=== PATIENT | female | born 1965 | race Caucasian/White ===

== ENCOUNTER 2016-08-24 05:34 | Emergency (ER) | payer OTHER ==
[2016-08-24 05:42] VITALS: TEMP 97.6
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
[2016-08-24] MEDS ORDERED: MAG HYDROX/AL HYDROX/SIMETH 30 ML, HYOSCYAMINE ELIXIR 10 ML, CIMETIDINE HCL 300 MG, LID... PO STA ×4 (06:45)
[2016-08-24 07:17] LABS: Basophils # (A) 0.1 k/uL (0-0.2); Basophils % (A) 2 %; CH 30.3; CHCM 34.2; Eosinophils # (A) 0.1 k/uL (0-0.7); Eosinophils % (A) 2 %; HCT 44.6 % (34.0-46.0); HDW 2.93; HGB 14.6 gm/dL (11.4-16.0); Luc % (Auto) 1; Lymphocytes % (A) 27 %; MCH 29.1 pg (25.0-35.0); MCHC 32.6 g/dL (31.0-37.0); MCV 89.3 fL (80.0-100.0); Mean Platelet Volume 7.8; Monocytes # (A) 0.4 k/uL (0-1.0); Monocytes % (A) 5 %; Neutrophils # (A) 4.7 k/uL (1.3-7.7); Neutrophils % (A) 64 %; RDW 14.2 % (11.5-15.5); WBC 7.4 k/uL (3.8-10.6); WBC (Perox) 7.56
--- NOTE | 2016-08-24 07:29 | XR ---
EXAMINATION TYPE: XR chest 2V DATE OF EXAM: 08/24/2016 7:18 AM COMPARISON: 10/02/2016 HISTORY: Chest pain FINDINGS: Perihilar subsegmental consolidation. No pneumothorax. No overt failure of fusion. IMPRESSION: 1. Right perihilar atelectasis or infiltrate.
[2016-08-24 07:32] LABS: Partial Thromboplastin Time 23.6 sec (22.0-30.0); Prothrombin Time 10.4 sec (9.0-12.0)
[2016-08-24 07:41] LABS: Creatine Kinase 103 U/L (30-135)
[2016-08-24 07:42] LABS: ALT 52 U/L (9-52); AST 29 U/L (14-36); Alkaline Phosphatase 75 U/L (38-126); Amylase 45 U/L (30-110); Anion Gap 8 mmol/L; Blood Urea Nitrogen 14 mg/dL (7-17); Calcium 9.4 mg/dL (8.4-10.2); Carbon Dioxide 29 mmol/L (22-30); Chloride 104 mmol/L (98-107); Glucose 88 mg/dL (74-99); Non-African American GFR(MDRD) >60 (>60 ml/min/1.73 sqM); Sodium 141 mmol/L (137-145); Total Bilirubin 0.5 mg/dL (0.2-1.3); Total Protein 6.7 g/dL (6.3-8.2)
[2016-08-24 07:53] LABS: Creatine Kinase MB 1.5 ng/mL (0.0-2.4); Troponin I <0.012 ng/mL (0.000-0.034)
[2016-08-24 07:55] LABS: Potassium 4.5 mmol/L (3.5-5.1)
[2016-08-24] MEDS ORDERED: methylPREDNISolone SOD SUCCI 125 MG/2 ML VIAL IV STA (10:05)
[2016-08-24] MEDS ORDERED: FAMOTIDINE 20 MG/2 ML VIAL IV STA (10:05)
[2016-08-24] MEDS ORDERED: RX INFO: IV CONTRAST WAS GIVEN 1 EACH MISC MISCELLANE PRN (10:05)
[2016-08-24] MEDS ORDERED: ACETAMINOPHEN IV (For NPO) 1,000 MG in SALINE 1 100ML.BAG IVPB STA (10:05)
[2016-08-24] MEDS ORDERED: diphenhydrAMINE 50 MG/ML 1 ML VIAL IVP STA (10:05)
--- NOTE | 2016-08-24 11:30 | CT ---
EXAMINATION TYPE: CT angio chest DATE OF EXAM: 08/24/2016 11:15 AM COMPARISON: 11/01/2015 HISTORY: 51-year-old female with chest pain CT DLP: 553 mGycm Automated exposure control for dose reduction was used. TECHNIQUE: Contiguous axial scanning of the chest is performed with with IV Contrast, patient injecte d with 100 ml mL of Omnipaque 350. Coronal and sagittal MIP reconstructions performed. FINDINGS: The heart is upper limits of normal in size without pericardial effusion. The aorta is normal caliber with variant direct takeoff of the left vertebral artery directly from th e aortic arch. Satisfactory opacification of the pulmonary arterial system without evidence for pulmonary embolus. Evaluation of the lungs are likely right midlung and mild dependent atelectasis. There is mild diffus e bronchial wall thickening also noted. No consolidation or pleural effusion. Visualized upper abdomen shows a small hiatal hernia. Soft tissue irregularity in this region, axial and image 113 may relate to mucosal redundancy. Bones: No osseous destructive process. IMPRESSION: 1. No evidence for pulmonary embolus. 2. A band of atelectasis in the right mid lung. Mild diffuse bronchial wall thickening could represen t bronchitis or asthma. 3. Small hiatal hernia. Some irregular soft tissue thickening at the GE junction may relate to mucosa l redundancy. Correlate for any symptoms that would warrant direct visualization to exclude a neoplas tic etiology.
[2016-08-24 12:33] VITALS: BP 106/57; PULSE 74; RESP 18
== END 2016-08-24 12:33 | disposition home or self-care (01) ==
LOC: EC 05:34
DX: J40 Bronchitis, not specified as acute or chronic (principal); R07.89 Other chest pain; M94.0 Chondrocostal junction syndrome [Tietze]; I48.91 Unspecified atrial fibrillation; F41.9 Anxiety disorder, unspecified; F17.200 Nicotine dependence, unspecified, uncomplicated; Z88.5 Allergy status to narcotic agent; Z88.2 Allergy status to sulfonamides; Z88.8 Allergy status to other drugs, medicaments and biological substances; Z88.6 Allergy status to analgesic agent; Z88.1 Allergy status to other antibiotic agents; Z98.61 Coronary angioplasty status; Z79.82 Long term (current) use of aspirin; Z91.041 Radiographic dye allergy status; Z79.899 Other long term (current) drug therapy
CPT/HCPCS: 99285; 96365; 96375 ×3; 36415; 93005; 85379; 80053; 82150; 82550; 82553; 83690; 83735; 84484; 85025; 85610; 85730; 71020; 71275; J1200; J2930; Q9967; J0131

== ENCOUNTER 2016-09-13 03:54 | Observation (INO) | payer OTHER ==
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
[2016-09-13] MEDS: NITROGLYCERIN SL TABS 0.4 MG TAB SUBLINGUAL STA (04:59)
[2016-09-13] MEDS: ASPIRIN 81 MG CHEW PO STA ×2 (05:01→09:42)
[2016-09-13] MEDS ORDERED: MORPHINE SULFATE 4 MG/ML SYRINGE IV STA (05:11)
[2016-09-13 05:47] LABS: Basophils % (A) 0 %; CH 30.5; CHCM 35.1; Eosinophils # (A) 0.2 k/uL (0-0.7); Eosinophils % (A) 2 %; HCT 38.4 % (34.0-46.0); HDW 2.99; HGB 13.1 gm/dL (11.4-16.0); Luc % (Auto) 1; Lymphocytes # (A) 1.6 k/uL (1.0-4.8); Lymphocytes % (A) 19 %; MCH 29.8 pg (25.0-35.0); MCHC 34.1 g/dL (31.0-37.0); MCV 87.2 fL (80.0-100.0); Mean Platelet Volume 7.3; Monocytes # (A) 0.4 k/uL (0-1.0); Monocytes % (A) 5 %; Neutrophils # (A) 6.4 k/uL (1.3-7.7); Neutrophils % (A) 73 %; RBC 4.41 m/uL (3.80-5.40); RDW 13.3 % (11.5-15.5); WBC 8.8 k/uL (3.8-10.6)
[2016-09-13 06:04] LABS: ALT 44 U/L (9-52); AST 35 U/L (14-36); Alkaline Phosphatase 91 U/L (38-126); Amylase <30 U/L (30-110); Anion Gap 8 mmol/L; Blood Urea Nitrogen 13 mg/dL (7-17); Calcium 8.8 mg/dL (8.4-10.2); Carbon Dioxide 28 mmol/L (22-30); Chloride 105 mmol/L (98-107); Glucose 77 mg/dL (74-99); Magnesium 1.8 mg/dL (1.6-2.3); Non-African American GFR(MDRD) >60 (>60 ml/min/1.73 sqM); Potassium 3.7 mmol/L (3.5-5.1); Sodium 141 mmol/L (137-145); Total Bilirubin 0.3 mg/dL (0.2-1.3); Total Protein 5.9 g/dL (6.3-8.2)
[2016-09-13 06:12] LABS: Creatine Kinase 44 U/L (30-135)
[2016-09-13 06:26] LABS: Creatine Kinase MB 0.4 ng/mL (0.0-2.4); Troponin I <0.012 ng/mL (0.000-0.034)
[2016-09-13] MEDS ORDERED: HYDROcodone/APAP 7.5-325MG 1 EACH TAB PO ONE (06:34)
[2016-09-13] MEDS ORDERED: NITROGLYCERIN SL TABS 0.4 MG TAB SUBLINGUAL PRN (07:04)
[2016-09-13] MEDS ORDERED: IPRATROPIUM-ALBUTEROL 3 ML NEB INHALATION PRN (07:06)
--- NOTE | 2016-09-13 07:09 | XR ---
EXAMINATION TYPE: XR chest 1V portable DATE OF EXAM: 09/13/2016 7:00 AM COMPARISON: 08/24/2016 HISTORY: Sharp mid chest pain started early a.m. TECHNIQUE: Single frontal view of the chest is obtained. FINDINGS: Mild atelectasis is noted in the right midlung field. There is mild pulmonary vascular congestion. No focal pneumonia pneumothorax or pleural effusion is noted. Chronic interstitial lung changes are sug gested. Heart is borderline enlarged.. The osseous structures are intact. IMPRESSION: 1. Mild atelectasis in the right midlung field. 2. No focal pneumonia.
[2016-09-13] MEDS: SODIUM CHLORIDE 0.9% 1,000 ML IV SCH ×2 (09:04→19:57)
[2016-09-13] MEDS: ALPRAZolam 0.5 MG TAB PO SCH ×3 (09:13→23:04)
[2016-09-13] MEDS: METOPROLOL TARTRATE 25 MG TAB PO SCH ×2 (09:27→20:01)
[2016-09-13 09:57] VITALS: BMI 29.5
[2016-09-13] MEDS ORDERED: oxyCODONE-APAP 10-325MG 1 EACH TAB PO PRN (11:01)
[2016-09-13 11:25] LABS: Creatine Kinase 36 U/L (30-135)
[2016-09-13 11:35] LABS: Creatine Kinase MB 0.4 ng/mL (0.0-2.4); Troponin I <0.012 ng/mL (0.000-0.034)
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
[2016-09-13 17:46] LABS: Creatine Kinase 34 U/L (30-135)
[2016-09-13 18:00] LABS: Creatine Kinase MB 0.3 ng/mL (0.0-2.4); Troponin I <0.012 ng/mL (0.000-0.034)
[2016-09-13] MEDS: MORPHINE SULFATE 2 MG/ML SYRINGE IVP PRN (20:01)
[2016-09-14] MEDS: MORPHINE SULFATE 2 MG/ML SYRINGE IVP PRN ×3 (00:02→08:21)
[2016-09-14] MEDS: SODIUM CHLORIDE 0.9% 1,000 ML IV SCH (04:18)
[2016-09-14 05:15] VITALS: TEMP 97.6
[2016-09-14 05:31] LABS: Cholesterol 180 mg/dL (<200); HDL Cholesterol 42 mg/dL (40-60); Triglycerides 399 mg/dL (<150)
[2016-09-14 08:02] VITALS: BP 111/56; PULSE 51; RESP 14
[2016-09-14] MEDS: ALPRAZolam 0.5 MG TAB PO SCH (08:21)
[2016-09-14] MEDS ORDERED: ASPIRIN 325 MG TAB PO SCH (09:00)
--- NOTE | 2016-09-14 11:31 | P.DS ---
Providers Date of admission: 09/13/16 07:30 Expected date of discharge: 09/14/16 Attending physician: Lana Almanza Primary care physician: Lana Almanza [facility] Course: 1. Chest pain: With typical and atypical features. 12 leads EKG showed no acute ischemic changes in the emergency room. Serial troponin negative 2 sets. Patient was seen and evaluated by cardiology and was cleared for discharge as her pain was mostly in the chest wall with costochondral tenderness on the right side of the chest. 2. Paroxysmal atrial fibrillation: Heart rate well controlled. Continue telemetry monitoring. 3. Chronic low back pain 4. Major depressive disorder Patient Condition at Discharge: Fair Plan - Discharge Summary Discharge Medication List Aspirin [Adult Low Dose Aspirin EC] 81 mg PO DAILY 12/09/15 [History] ALPRAZolam [Xanax] 1 mg PO Q8HR 08/24/16 [History] Ipratropium/Albuterol Sulfate [Combivent Respimat Inhaler] 2 puff INHALATION QID PRN #1 inhaler 08/24/16 [Rx] oxyCODONE HCL/ACETAMINOPHEN [Percocet 10-325 mg] 1 tab PO Q8H PRN 08/24/16 [ History] Vilazodone Hydrochloride [Viibryd] 40 mg PO DAILY 09/13/16 [History] Metoprolol Tartrate [Lopressor] 12.5 mg PO BID #0 09/14/16 [Rx] Follow up Appointment(s)/Referral(s): Lana Almanza MD [Primary Care Provider] - 1-2 days Discharge Disposition: HOME SELF-CARE
[2016-09-14] MEDS: METOPROLOL TARTRATE 25 MG TAB PO SCH (12:27)
== END 2016-09-14 12:26 | disposition home or self-care (01) ==
LOC: EC 03:54 → 3OBS 07:30
PROVIDERS: ADMIT Internal Medicine; ATTEND Internal Medicine
DX: R07.89 Other chest pain (principal); I48.0 Paroxysmal atrial fibrillation; G89.29 Other chronic pain; M54.5 Low back pain; F32.9 Major depressive disorder, single episode, unspecified; F41.9 Anxiety disorder, unspecified; F40.240 Claustrophobia; Z86.14 Personal history of Methicillin resistant Staphylococcus aureus infection; Z87.891 Personal history of nicotine dependence; Z79.82 Long term (current) use of aspirin; Z79.899 Other long term (current) drug therapy; Z88.6 Allergy status to analgesic agent; Z88.8 Allergy status to other drugs, medicaments and biological substances; Z98.1 Arthrodesis status; Z82.49 Family history of ischemic heart disease and other diseases of the circulatory system; Z80.8 Family history of malignant neoplasm of other organs or systems; Z82.5 Family history of asthma and other chronic lower respiratory diseases
CPT/HCPCS: 36415; 93005; 85379; 80061; 80053; 84443; 82150; 82550; 82553; 83690; 83735; 84484; 85025; 71010; 99285; 96374; G0378 ×2; J2270 ×3; 96376

== ENCOUNTER 2017-01-25 18:54 | Emergency (ER) | payer OTHER ==
[2017-01-25] MEDS ORDERED: SODIUM CHLORIDE 0.9% 500 ML IV STA (19:24)
[2017-01-25] MEDS ORDERED: HYDROmorphone 1 MG/ML 1 ML SYRINGE IVP STA ×2 (19:25→20:26)
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
[2017-01-25 19:49] LABS: Basophils % (A) 0 %; CH 29.3; CHCM 34.7; Eosinophils # (A) 0.2 k/uL (0-0.7); Eosinophils % (A) 4 %; HCT 38.9 % (34.0-46.0); HDW 2.96; HGB 13.2 gm/dL (11.4-16.0); Luc # (Auto) 0.11; Luc % (Auto) 2; Lymphocytes # (A) 1.6 k/uL (1.0-4.8); Lymphocytes % (A) 26 %; MCH 28.6 pg (25.0-35.0); MCHC 33.8 g/dL (31.0-37.0); MCV 84.7 fL (80.0-100.0); Mean Platelet Volume 7.8; Monocytes # (A) 0.3 k/uL (0-1.0); Monocytes % (A) 5 %; Neutrophils # (A) 3.8 k/uL (1.3-7.7); Neutrophils % (A) 63 %; RDW 13.6 % (11.5-15.5); WBC 6.1 k/uL (3.8-10.6); WBC (Perox) 6.53
[2017-01-25 20:00] LABS: Partial Thromboplastin Time 25.1 sec (22.0-30.0); Prothrombin Time 10.4 sec (9.0-12.0)
[2017-01-25 20:05] LABS: ALT 27 U/L (9-52); AST 21 U/L (14-36); Alkaline Phosphatase 97 U/L (38-126); Anion Gap 6 mmol/L; Blood Urea Nitrogen 12 mg/dL (7-17); Calcium 9.5 mg/dL (8.4-10.2); Carbon Dioxide 29 mmol/L (22-30); Chloride 107 mmol/L (98-107); Glucose 90 mg/dL (74-99); Non-African American GFR(MDRD) >60 (>60 ml/min/1.73 sqM); Potassium 4.4 mmol/L (3.5-5.1); Sodium 142 mmol/L (137-145); Total Bilirubin 0.2 mg/dL (0.2-1.3); Total Protein 6.3 g/dL (6.3-8.2)
[2017-01-25 20:14] LABS: Creatine Kinase 65 U/L (30-135)
[2017-01-25 20:27] LABS: Creatine Kinase MB 0.7 ng/mL (0.0-2.4); Troponin I <0.012 ng/mL (0.000-0.034)
--- NOTE | 2017-01-25 20:34 | CT ---
EXAMINATION TYPE: CT brain wo con DATE OF EXAM: 01/25/2017 COMPARISON: 08/24/2010 HISTORY: fall CT DLP: 1036 mGycm Automated exposure control for dose reduction was used. FINDINGS: Ventricles and sulci appear normal. There is no mass effect nor midline shift. There is no sign of in tracranial hemorrhage. The calvarium appears intact. IMPRESSION: Negative unenhanced head CT scan. No change.
--- NOTE | 2017-01-25 20:40 | XR ---
EXAMINATION TYPE: XR chest 2V DATE OF EXAM: 01/25/2017 COMPARISON: 09/13/2016 HISTORY: Fell down the stairs TECHNIQUE: Frontal and lateral views of the chest are obtained. FINDINGS: Heart and mediastinum are normal. Lungs are clear. There is no sign of pleural effusion or pneumothorax. The bony thorax is intact. IMPRESSION: Normal chest. There is clearing of the focal atelectasis in the right midlung compared t o last exam.
--- NOTE | 2017-01-25 20:41 | XR ---
EXAMINATION TYPE: XR pelvis AP view DATE OF EXAM: 01/25/2017 COMPARISON: NONE HISTORY: Fell down the stairs and pain TECHNIQUE: Single view FINDINGS: Pelvic ring is intact. Proximal femurs and hip joints are intact. I see no fracture. There is extensive lower lumbar spine surgery noted. Sacroiliac joints are intact. IMPRESSION: No acute abnormality of the pelvis.
--- NOTE | 2017-01-25 20:43 | XR ---
EXAMINATION TYPE: XR lumbar spine 2 or 3V DATE OF EXAM: 01/25/2017 COMPARISON: NONE HISTORY: Pain TECHNIQUE: 3 views FINDINGS: There is laminectomy at L4 and L5 with posterior fusion surgery. There are disc prosthesis at L3-4 L4-5 and L5-S1. I see no compression fracture. Sacroiliac joints are intact. IMPRESSION: Previous surgery. No fracture seen.
[2017-01-25 21:27] VITALS: RESP 16
[2017-01-25 21:43] VITALS: BP 103/57; PULSE 54; TEMP 98
== END 2017-01-25 21:49 | disposition home or self-care (01) ==
LOC: EC 18:54
DX: S33.5XXA Sprain of ligaments of lumbar spine, initial encounter (principal); R55 Syncope and collapse; R00.1 Bradycardia, unspecified; Z98.1 Arthrodesis status; Z87.891 Personal history of nicotine dependence; Z88.1 Allergy status to other antibiotic agents; Z88.5 Allergy status to narcotic agent; Z88.2 Allergy status to sulfonamides; Z91.041 Radiographic dye allergy status; Z88.8 Allergy status to other drugs, medicaments and biological substances; Z88.6 Allergy status to analgesic agent; Z79.82 Long term (current) use of aspirin; Z79.899 Other long term (current) drug therapy; W10.9XXA Fall (on) (from) unspecified stairs and steps, initial encounter; Y93.01 Activity, walking, marching and hiking; Y92.59 Other trade areas as the place of occurrence of the external cause
CPT/HCPCS: 99285; 96374; 96376; 36415; 93005; 80053; 82550; 82553; 84484; 85025; 85610; 85730; 71020; 72100; 72170; 70450; J1170

== ENCOUNTER 2017-03-13 16:24 | Emergency (ER) | payer OTHER ==
[2017-03-13 16:59] LABS: Basophils # (A) 0.1 k/uL (0-0.2); Basophils % (A) 1 %; CH 29.6; CHCM 34.4; Eosinophils # (A) 0.2 k/uL (0-0.7); Eosinophils % (A) 2 %; HCT 40.6 % (34.0-46.0); HDW 2.94; Luc # (Auto) 0.14; Luc % (Auto) 2; Lymphocytes # (A) 3.1 k/uL (1.0-4.8); Lymphocytes % (A) 39 %; MCH 29.8 pg (25.0-35.0); MCHC 34.4 g/dL (31.0-37.0); MCV 86.6 fL (80.0-100.0); Mean Platelet Volume 7.5; Monocytes # (A) 0.5 k/uL (0-1.0); Monocytes % (A) 6 %; Neutrophils # (A) 3.8 k/uL (1.3-7.7); Neutrophils % (A) 49 %; RBC 4.68 m/uL (3.80-5.40); RDW 14.4 % (11.5-15.5); WBC 7.8 k/uL (3.8-10.6); WBC (Perox) 7.58
[2017-03-13] MEDS ORDERED: ASPIRIN 325 MG TAB PO STA (17:05)
[2017-03-13] MEDS ORDERED: MORPHINE SULFATE 4 MG/ML SYRINGE IVP STA (17:05)
[2017-03-13 17:13] LABS: Creatine Kinase 40 U/L (30-135); INR 1.1 (<1.2); Partial Thromboplastin Time 23.9 sec (22.0-30.0); Prothrombin Time 10.8 sec (9.0-12.0)
[2017-03-13 17:15] LABS: ALT 30 U/L (9-52); AST 13 U/L (14-36); Alcohol <10 mg/dL; Alkaline Phosphatase 83 U/L (38-126); Anion Gap 10 mmol/L; Blood Urea Nitrogen 13 mg/dL (7-17); Calcium 9.1 mg/dL (8.4-10.2); Carbon Dioxide 25 mmol/L (22-30); Chloride 108 mmol/L (98-107); Glucose 68 mg/dL (74-99); Non-African American GFR(MDRD) >60 (>60 ml/min/1.73 sqM); Potassium 3.8 mmol/L (3.5-5.1); Sodium 143 mmol/L (137-145); Total Bilirubin 0.2 mg/dL (0.2-1.3); Total Protein 6.3 g/dL (6.3-8.2)
--- NOTE | 2017-03-13 17:19 | XR ---
EXAMINATION TYPE: XR chest 2V DATE OF EXAM: 03/13/2017 COMPARISON: 01/25/2017 HISTORY: Chest pain TECHNIQUE: Frontal and lateral views of the chest are obtained. FINDINGS: Heart is normal. Lungs are clear of consolidation. There are no hilar masses. There is no sign of pleural effusion. There are small linear density at the left lung base. There are chest leads . IMPRESSION: There is new minimal focal atelectasis at the left lung base compared to old exam.
[2017-03-13 17:26] LABS: Creatine Kinase MB 0.7 ng/mL (0.0-2.4); Troponin I <0.012 ng/mL (0.000-0.034)
[2017-03-13 18:06] VITALS: BP 104/61; PULSE 58; RESP 20
--- NOTE | 2017-03-13 18:12 | ED ---
General Adult HPI - General Chief complaint: Chest Pain Stated complaint: Chest Pain Time Seen by Provider: 03/13/17 16:35 Source: patient, RN notes reviewed, old records reviewed Mode of arrival: wheelchair Limitations: no limitations - History of Present Illness Initial comments: 52-year-old female presents with chief complaint of chest pain. Describes the pain is heavy and radiates to her left arm. She does have a past medical history of atrial fibrillation and chronic back pain for which she takes OxyContin cotton, and Flexeril. Patient denies nausea vomiting or diarrhea. Denies diaphoresis. Patient has had chest pain workup in the past including heart catheterization in 2014 which she believes was normal. Patient denies chest pain with exertion. Denies alcohol consumption today. Denies cough, denies fever or chills, denies abdominal pain. - Related Data Home Medications Medication Instructions Recorded Confirmed ALPRAZolam [Xanax] 1 mg PO TID PRN 08/24/16 03/13/17 oxyCODONE HCL/ACETAMINOPHEN 1 tab PO Q8H PRN 08/24/16 03/13/17 [Percocet 10-325 mg] Metoprolol Tartrate [Lopressor] 25 mg PO DAILY 03/13/17 03/13/17 Allergies Allergy/AdvReac Type Severity Reaction Status Date / Time carisoprodol [From Soma] Allergy Unknown Itching Verified 03/13/17 18:01 cephalexin monohydrate Allergy Unknown Anaphylaxis Verified 03/13/17 18:01 [From Keflex] codeine Allergy Unknown Itching Verified 03/13/17 18:01 ketorolac tromethamine Allergy Unknown Rash/Hives Verified 03/13/17 18:01 [From Toradol] prochlorperazine Allergy Unknown Anaphylaxis Verified 03/13/17 18:01 [From Compazine] sulfamethoxazole Allergy Unknown Anaphylaxis Verified 03/13/17 18:01 [From Bactrim] trimethoprim [From Bactrim] Allergy Unknown Anaphylaxis Verified 03/13/17 18:01 Iodinated Contrast- Oral and Allergy Anaphylaxis Verified 03/13/17 18:01 IV Dye [Iodinated Contrast Media - Oral and] Review of Systems ROS Statement: Those systems with pertinent positive or pertinent negative responses have been documented in the HPI. ROS Other: All systems not noted in ROS Statement are negative. Cardiovascular: Reports: chest pain. Denies: palpitations Endocrine: Denies: fatigue Gastrointestinal: Denies: abdominal pain, nausea, vomiting Past Medical History Past Medical History: Atrial Fibrillation Additional Past Medical History / Comment(s): CELLULITIS LT ELBOW. OTHER PAST MEDCIAL HX INCLUDES: kidney stone, UTI, PAST FX RT ANKLE-casted only, BP RUNS ON LOW SIDE, DIVERTICULITIS, PANCREATITIS. History of Any Multi-Drug Resistant Organisms: MRSA Date of last positivie culture/infection: 2003 MDRO Source:: stomach/skin Past Surgical History: Back Surgery, Section, Cholecystectomy, Hysterectomy Additional Past Surgical History / Comment(s): lithotripsy X5, X3 BACK SX FUSION RODS AND SCREWS Past Anesthesia/Blood Transfusion Reactions: Motion Sickness Additional Past Anesthesia/Blood Transfusion Reaction / Comment(s): CLAUSTERPHOBIA Past Psychological History: Anxiety, Depression Smoking Status: Former smoker Past Alcohol Use History: None Reported Past Drug Use History: None Reported - Past Family History Father History Unknown: Yes Additional Family Medical History / Comment(s): HX UNK Mother Family Medical History: Cancer, COPD, Hypertension, Pneumonia, Thyroid Disorder Additional Family Medical History / Comment(s): MOM IS 67 YEARS OLD, THYROID CA General Exam Limitations: no limitations General appearance: appears intoxicated Head exam: Present: atraumatic, normocephalic Eye exam: Present: normal appearance, PERRL ENT exam: Present: normal exam, normal oropharynx, mucous membranes moist Neck exam: Present: normal inspection, full ROM. Absent: tenderness, meningismus Respiratory exam: Present: normal lung sounds bilaterally. Absent: respiratory distress, wheezes Cardiovascular Exam: Present: normal rhythm, bradycardia GI/Abdominal exam: Present: soft. Absent: distended, tenderness Extremities exam: Present: normal inspection, normal capillary refill. Absent: pedal edema Neurological exam: Present: oriented X3, CN II-XII intact, other (Patient appears intoxicated). Absent: motor sensory deficit Psychiatric exam: Present: depressed, flat affect Skin exam: Present: warm, dry Course Vital Signs 03/13/17 03/13/17 16:31 17:27 Temperature 98.1 F Pulse Rate 56 L 49 L Respiratory 18 18 Rate Blood Pressure 119/71 112/75 O2 Sat by Pulse 97 99 Oximetry - Reevaluation(s) Reevaluation #1: 03/13/17 18:06 Patient is given aspirin and morphine for her pain. Reevaluation she is feeling better. Patient did not receive nitroglycerin. EKG Findings - EKG Comments: EKG Findings:: EKG shows sinus bradycardia with a ventricular rate of 50 QRS 78 , OH 154, QTC is 393, there is no ST segment elevation or depression, no T-wave abnormality Medical Decision Making - Medical Decision Making 52-year-old female presenting with chief complaint of heavy sided chest pain. Patient denies nausea or vomiting, denies diaphoresis. Patient has been evaluated in the emergency department for chest pain previously. Including a heart catheterization in September 2014 which showed no significant coronary artery disease. She does have history of atrial fibrillation and is on metoprolol. Patient's heart rate remains bradycardic lost in the emergency department, however blood pressure is stable. On initial questioning patient does appear somewhat intoxicated, slurring her words. She is able to give a history. She does take Percocet as well as benzodiazepines for chronic back pain. On initial questioning patient denied taking any of these medications stated her only medication was metoprolol. EKG is nonischemic, chest x-ray shows no acute findings, laboratory studies including cardiac enzymes is unremarkable. Urine drug screen does show opiates and benzodiazepines, again which the patient initially denied taking. Patient is encouraged to follow up with her primary care physician, and her information technology data analyst. - Lab Data Result diagrams: 03/13/17 16:45 03/13/17 16:45 Lab Results 03/13/17 03/13/17 03/13/17 Range/Units 16:45 16:45 16:45 WBC 7.8 (3.8-10.6) k/uL RBC 4.68 (3.80-5.40) m/uL Hgb 14.0 (11.4-16.0) gm/dL Hct 40.6 (34.0-46.0) % MCV 86.6 (80.0-100.0) fL MCH 29.8 (25.0-35.0) pg MCHC 34.4 (31.0-37.0) g/dL RDW 14.4 (11.5-15.5) % Plt Count 195 (150-450) k/uL Neutrophils % 49 % Lymphocytes % 39 % Monocytes % 6 % Eosinophils % 2 % Basophils % 1 % Neutrophils # 3.8 (1.3-7.7) k/uL Lymphocytes # 3.1 (1.0-4.8) k/uL Monocytes # 0.5 (0-1.0) k/uL Eosinophils # 0.2 (0-0.7) k/uL Basophils # 0.1 (0-0.2) k/uL PT (9.0-12.0) sec INR (<1.2) APTT (22.0-30.0) sec Sodium 143 (137-145) mmol/L Potassium 3.8 (3.5-5.1) mmol/L Chloride 108 H (98-107) mmol/L Carbon Dioxide 25 (22-30) mmol/L Anion Gap 10 mmol/L BUN 13 (7-17) mg/dL Creatinine 0.70 (0.52-1.04) mg/dL Est GFR (MDRD) Af Amer >60 (>60 ml/min/1.73 sqM) Est GFR (MDRD) Non-Af >60 (>60 ml/min/1.73 sqM) Glucose 68 L (74-99) mg/dL Calcium 9.1 (8.4-10.2) mg/dL Magnesium 2.0 (1.6-2.3) mg/dL Total Bilirubin 0.2 (0.2-1.3) mg/dL AST 13 L (14-36) U/L ALT 30 (9-52) U/L Alkaline Phosphatase 83 (38-126) U/L Total Creatine Kinase 40 (30-135) U/L CK-MB (CK-2) 0.7 (0.0-2.4) ng/mL CK-MB (CK-2) Rel Index 1.8 Troponin I <0.012 (0.000-0.034) ng/mL NT-Pro-B Natriuret Pep pg/mL Total Protein 6.3 (6.3-8.2) g/dL Albumin 4.0 (3.5-5.0) g/dL Urine Opiates Screen (NotDetected) Ur Oxycodone Screen (NotDetected) Urine Methadone Screen (NotDetected) Ur Propoxyphene Screen (NotDetected) Ur Barbiturates Screen (NotDetected) U Tricyclic Antidepress (NotDetected) Ur Phencyclidine Scrn (NotDetected) Ur Amphetamines Screen (NotDetected) U Methamphetamines Scrn (NotDetected) U Benzodiazepines Scrn (NotDetected) Urine Cocaine Screen (NotDetected) U Marijuana (THC) Screen (NotDetected) Serum Alcohol <10 mg/dL 03/13/17 03/13/17 03/13/17 Range/Units 16:45 16:45 17:10 WBC (3.8-10.6) k/uL RBC (3.80-5.40) m/uL Hgb (11.4-16.0) gm/dL Hct (34.0-46.0) % MCV (80.0-100.0) fL MCH (25.0-35.0) pg MCHC (31.0-37.0) g/dL RDW (11.5-15.5) % Plt Count (150-450) k/uL Neutrophils % % Lymphocytes % % Monocytes % % Eosinophils % % Basophils % % Neutrophils # (1.3-7.7) k/uL Lymphocytes # (1.0-4.8) k/uL Monocytes # (0-1.0) k/uL Eosinophils # (0-0.7) k/uL Basophils # (0-0.2) k/uL PT 10.8 (9.0-12.0) sec INR 1.1 (<1.2) APTT 23.9 (22.0-30.0) sec Sodium (137-145) mmol/L Potassium (3.5-5.1) mmol/L Chloride (98-107) mmol/L Carbon Dioxide (22-30) mmol/L Anion Gap mmol/L BUN (7-17) mg/dL Creatinine (0.52-1.04) mg/dL Est GFR (MDRD) Af Amer (>60 ml/min/1.73 sqM) Est GFR (MDRD) Non-Af (>60 ml/min/1.73 sqM) Glucose (74-99) mg/dL Calcium (8.4-10.2) mg/dL Magnesium (1.6-2.3) mg/dL Total Bilirubin (0.2-1.3) mg/dL AST (14-36) U/L ALT (9-52) U/L Alkaline Phosphatase (38-126) U/L Total Creatine Kinase (30-135) U/L CK-MB (CK-2) (0.0-2.4) ng/mL CK-MB (CK-2) Rel Index Troponin I (0.000-0.034) ng/mL NT-Pro-B Natriuret Pep 408 pg/mL Total Protein (6.3-8.2) g/dL Albumin (3.5-5.0) g/dL Urine Opiates Screen Not Detected (NotDetected) Ur Oxycodone Screen Detected H (NotDetected) Urine Methadone Screen Not Detected (NotDetected) Ur Propoxyphene Screen Not Detected (NotDetected) Ur Barbiturates Screen Not Detected (NotDetected) U Tricyclic Antidepress Not Detected (NotDetected) Ur Phencyclidine Scrn Not Detected (NotDetected) Ur Amphetamines Screen Not Detected (NotDetected) U Methamphetamines Scrn Not Detected (NotDetected) U Benzodiazepines Scrn Detected H (NotDetected) Urine Cocaine Screen Not Detected (NotDetected) U Marijuana (THC) Screen Not Detected (NotDetected) Serum Alcohol mg/dL Disposition Clinical Impression: Chest pain Disposition: HOME SELF-CARE Condition: Good Instructions: Chest Pain (ED) Additional Instructions: Patient is encouraged to return to the emergency department with worsening or changing symptoms. Referrals: Castillo Younger DO [Primary Care Provider] - 1-2 days Time of Disposition: 18:11
[2017-03-13 18:20] VITALS: TEMP 97.1
== END 2017-03-13 18:20 | disposition home or self-care (01) ==
LOC: EC 16:24
DX: R07.9 Chest pain, unspecified (principal); R00.1 Bradycardia, unspecified; I48.91 Unspecified atrial fibrillation; Z86.14 Personal history of Methicillin resistant Staphylococcus aureus infection; Z87.891 Personal history of nicotine dependence; Z79.899 Other long term (current) drug therapy; Z88.1 Allergy status to other antibiotic agents; Z88.2 Allergy status to sulfonamides; Z88.5 Allergy status to narcotic agent; Z88.6 Allergy status to analgesic agent; Z88.8 Allergy status to other drugs, medicaments and biological substances; Z91.041 Radiographic dye allergy status
CPT/HCPCS: 36415; 93005; 83880; 80053; 82550; 82553; 83735; 84484; 85025; 85610; 85730; 80306; 80320; 71020; 99285; 96374; J2270

== ENCOUNTER 2017-05-04 11:19 | Emergency (ER) | payer OTHER ==
[2017-05-04] MEDS ORDERED: SODIUM CHLORIDE 0.9% 500 ML BAG ONE (11:31)
--- NOTE | 2017-05-04 11:53 | ED ---
General Adult HPI - General Stated complaint: right ear pain/vomiting Time Seen by Provider: 05/04/17 11:35 Source: RN notes reviewed - History of Present Illness Initial comments: This is a 52-year-old female with past medical history significant for a right ear implant. Patient has did not know what kind of implant this is. Patient states that it was done 15 years ago. Patient states about 3 years ago her hearing started to fade again and her ENT told her that the implanted move. Patient states 3 days ago she had a big sneeze and ever since then she has been vertiginous everything is been dizzy been nauseated and has been vomiting. Patient states she also has a little bit of right ear pain at this time. Patient states there was some clear drainage but currently there is no more drainage. Patient states she saw her ENT 3 days ago and he wanted to have a computed tomography scan done which is scheduled for tomorrow. Patient denies any headache patient denies numbness weakness. Patient denies any chest pain palpitations difficulty breathing or shortness of breath. - Related Data Home Medications Medication Instructions Recorded Confirmed ALPRAZolam [Xanax] 1 mg PO BID 08/24/16 05/04/17 oxyCODONE HCL/ACETAMINOPHEN 1 tab PO QID PRN 08/24/16 05/04/17 [Percocet 10-325 mg] Metoprolol Tartrate [Lopressor] 25 mg PO DAILY 03/13/17 05/04/17 Previous Rx's Medication Instructions Recorded Meclizine [Antivert] 25 mg PO TID #20 tab 05/04/17 traMADol HCL [Ultram] 50 mg PO Q6HR PRN #20 tab 05/04/17 Allergies Allergy/AdvReac Type Severity Reaction Status Date / Time carisoprodol [From Soma] Allergy Unknown Itching Verified 05/04/17 11:34 cephalexin monohydrate Allergy Unknown Anaphylaxis Verified 05/04/17 11:34 [From Keflex] codeine Allergy Unknown Itching Verified 05/04/17 11:34 ketorolac tromethamine Allergy Unknown Rash/Hives Verified 05/04/17 11:34 [From Toradol] prochlorperazine Allergy Unknown Anaphylaxis Verified 05/04/17 11:34 [From Compazine] sulfamethoxazole Allergy Unknown Anaphylaxis Verified 05/04/17 11:34 [From Bactrim] trimethoprim [From Bactrim] Allergy Unknown Anaphylaxis Verified 05/04/17 11:34 Iodinated Contrast- Oral and Allergy Anaphylaxis Verified 05/04/17 11:34 IV Dye [Iodinated Contrast Media - Oral and] Review of Systems ROS Statement: Those systems with pertinent positive or pertinent negative responses have been documented in the HPI. ROS Other: All systems not noted in ROS Statement are negative. Past Medical History Past Medical History: Atrial Fibrillation Additional Past Medical History / Comment(s): CELLULITIS LT ELBOW. OTHER PAST MEDCIAL HX INCLUDES: kidney stone, UTI, PAST FX RT ANKLE-casted only, BP RUNS ON LOW SIDE, DIVERTICULITIS, PANCREATITIS. History of Any Multi-Drug Resistant Organisms: MRSA Date of last positivie culture/infection: 2003 MDRO Source:: stomach/skin Past Surgical History: Back Surgery, Section, Cholecystectomy, Hysterectomy Additional Past Surgical History / Comment(s): lithotripsy X5, X3 BACK SX FUSION RODS AND SCREWS Past Anesthesia/Blood Transfusion Reactions: Motion Sickness Additional Past Anesthesia/Blood Transfusion Reaction / Comment(s): CLAUSTERPHOBIA Past Psychological History: Anxiety, Depression Smoking Status: Former smoker Past Alcohol Use History: None Reported Past Drug Use History: None Reported - Past Family History Father History Unknown: Yes Additional Family Medical History / Comment(s): HX UNK Mother Family Medical History: Cancer, COPD, Hypertension, Pneumonia, Thyroid Disorder Additional Family Medical History / Comment(s): MOM IS 67 YEARS OLD, THYROID [place] General Exam - General Exam Comments Initial Comments: GENERAL: Patient is well-developed and well-nourished. Patient is nontoxic and well- hydrated and is in moderate distress. ENT: Neck is soft and supple. No significant lymphadenopathy is noted. Oropharynx is clear. Moist mucous membranes. Neck has full range of motion without eliciting any pain. EYES: The sclera were anicteric and conjunctiva were pink and moist. Extraocular movements were intact and pupils were equal round and reactive to light. Eyelids were unremarkable. PULMONARY: Unlabored respirations. Good breath sounds bilaterally. No audible rales rhonchi or wheezing was noted. CARDIOVASCULAR: There is a regular rate and rhythm without any murmurs gallops or rubs. ABDOMEN: Soft and nontender with normal bowel sounds. No palpable organomegaly was noted. There is no palpable pulsatile mass. SKIN: Skin is clear with no lesions or rashes and otherwise unremarkable. NEUROLOGIC: Patient is alert and oriented x3. Cranial nerves II through XII are grossly intact. Motor and sensory are also intact. Normal speech, volume and content. Symmetrical smile. Cerebellar exam grossly intact. MUSCULOSKELETAL: Normal extremities with adequate strength and full range of motion. LYMPHATICS: No significant lymphadenopathy is noted PSYCHIATRIC: Normal psychiatric evaluation. Medical Decision Making - Medical Decision Making CT of the inner ear showed no acute abnormality. Disposition Clinical Impression: Ear pain, right, Vertigo Disposition: HOME SELF-CARE Condition: Good Instructions: Vertigo (ED) Prescriptions: Meclizine [Antivert] 25 mg PO TID #20 tab traMADol HCL [Ultram] 50 mg PO Q6HR PRN #20 tab PRN Reason: Pain Referrals: Castillo Younger DO [Primary Care Provider] - 1-2 days Time of Disposition: 14:45
--- NOTE | 2017-05-04 14:33 | CT ---
EXAMINATION TYPE: CT iac wo con DATE OF EXAM: 05/04/2017 COMPARISON: NONE HISTORY: Hearing loss CT DLP: 150mGycm Automated exposure control for dose reduction was used. FINDINGS: The external auditory canals are patent bilaterally. Mastoid air cells show no evidence of abnormal opacification bilaterally. The middle ear ossicles are symmetric. There is a suggestion of previous implant surgery on the right . No abnormal attenuation within the middle ear. There is no evidence of suspicious surrounding soft tissue density to suggest cholesteatoma. The scu mayra is preserved bilaterally. The cochlea and the semicircular canals are symmetric and unremarkable. Vestibular aqueduct and inte rnal carotid canal appear unremarkable. Temporomandibular joints are maintained bilaterally. Changes of mild chronic sinusitis noted with the most marked findings involving the ethmoid air cells . 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 Nasal septal deviation IMPRESSION: 1. Postsurgical changes with no definite acute process. 2. Changes of chronic sinusitis.
[2017-05-04] MEDS ORDERED: traMADol 50 MG TAB PO STA (14:41)
[2017-05-04] MEDS ORDERED: IBUPROFEN 600 MG TAB PO STA (14:41)
[2017-05-04 15:38] VITALS: BP 107/56; PULSE 54; RESP 18; TEMP 97.1
== END 2017-05-04 15:38 | disposition home or self-care (01) ==
LOC: EC 11:19
DX: H92.01 Otalgia, right ear (principal); R42 Dizziness and giddiness; R11.2 Nausea with vomiting, unspecified; F41.9 Anxiety disorder, unspecified; Z87.891 Personal history of nicotine dependence; Z79.899 Other long term (current) drug therapy; Z88.1 Allergy status to other antibiotic agents; Z88.5 Allergy status to narcotic agent; Z88.6 Allergy status to analgesic agent; Z88.8 Allergy status to other drugs, medicaments and biological substances; Z91.041 Radiographic dye allergy status; Z96.20 Presence of otological and audiological implant, unspecified
CPT/HCPCS: 70480; 99284

== ENCOUNTER 2017-07-04 14:45 | Observation (INO) | payer OTHER ==
[2017-07-04] MEDS ORDERED: NITROGLYCERIN SL TABS 0.4 MG TAB SUBLINGUAL STA (15:02)
[2017-07-04] MEDS ORDERED: ASPIRIN 81 MG PO STA (15:02)
--- NOTE | 2017-07-04 15:06 | ED ---
Chest Pain HPI - General Chief Complaint: Chest Pain Stated Complaint: Chest Pain Time Seen by Provider: 07/04/17 14:50 Source: patient, RN notes reviewed Mode of arrival: wheelchair Limitations: no limitations - History of Present Illness Initial Comments: This is a 52-year-old female presents with complaints of the onset of chest pain this past night. Midsternal felt like an elephant sitting on her chest 7 10 severity it woke her up from sleep does not get any better nothing seems make it better nothing seems to make it worse she does states she had a cath in the past which didn't apparently show any blockages she is still a smoker we did discuss smoking cessation. She also has a history of atrial fibrillation on 2 different occasions. No history DVT/blood clots. He'll call his fevers chills nausea vomiting sweats cough or phlegm production. MD Complaint: chest pain - Related Data Home Medications Medication Instructions Recorded Confirmed ALPRAZolam [Xanax] 1 mg PO BID 08/24/16 07/04/17 oxyCODONE HCL/ACETAMINOPHEN 1 tab PO TID PRN 08/24/16 07/04/17 [Percocet 10-325 mg] Metoprolol Tartrate [Lopressor] 25 mg PO DAILY 03/13/17 07/04/17 Allergies Allergy/AdvReac Type Severity Reaction Status Date / Time carisoprodol [From Soma] Allergy Unknown Itching Verified 07/04/17 15:19 cephalexin monohydrate Allergy Unknown Anaphylaxis Verified 07/04/17 15:19 [From Keflex] codeine Allergy Unknown Itching Verified 07/04/17 15:19 ketorolac tromethamine Allergy Unknown Rash/Hives Verified 07/04/17 15:19 [From Toradol] prochlorperazine Allergy Unknown Anaphylaxis Verified 07/04/17 15:19 [From Compazine] sulfamethoxazole Allergy Unknown Anaphylaxis Verified 07/04/17 15:19 [From Bactrim] trimethoprim [From Bactrim] Allergy Unknown Anaphylaxis Verified 07/04/17 15:19 Iodinated Contrast- Oral and Allergy Anaphylaxis Verified 07/04/17 15:19 IV Dye [Iodinated Contrast Media - Oral and] Review of Systems ROS Statement: Those systems with pertinent positive or pertinent negative responses have been documented in the HPI. ROS Other: All systems not noted in ROS Statement are negative. EKG Findings - EKG Results: EKG: interpreted by MARIA LD, sinus rhythm (Normal sinus rhythm bradycardia rate of 58 HI interval 158 QRS 70 QT since QTC of/400 st-t wave changes) Past Medical History Past Medical History: Atrial Fibrillation Additional Past Medical History / Comment(s): CELLULITIS LT ELBOW. OTHER PAST MEDCIAL HX INCLUDES: kidney stone, UTI, PAST FX RT ANKLE-casted only, BP RUNS ON LOW SIDE, DIVERTICULITIS, PANCREATITIS. History of Any Multi-Drug Resistant Organisms: MRSA Date of last positivie culture/infection: 2003 MDRO Source:: stomach/skin Past Surgical History: Back Surgery, Section, Cholecystectomy, Hysterectomy Additional Past Surgical History / Comment(s): lithotripsy X5, X3 BACK SX FUSION RODS AND SCREWS Past Anesthesia/Blood Transfusion Reactions: Motion Sickness Additional Past Anesthesia/Blood Transfusion Reaction / Comment(s): CLAUSTERPHOBIA Past Psychological History: Anxiety, Depression Smoking Status: Current every day smoker Past Alcohol Use History: None Reported Past Drug Use History: None Reported - Past Family History Father History Unknown: Yes Additional Family Medical History / Comment(s): HX UNK Mother Family Medical History: Cancer, COPD, Hypertension, Pneumonia, Thyroid Disorder Additional Family Medical History / Comment(s): MOM IS 67 YEARS OLD, THYROID [place] General Exam - General Exam Comments Initial Comments: This is a well-developed well-nourished awake alert oriented 3 female Limitations: no limitations General appearance: alert, anxious Head exam: Present: atraumatic, normocephalic, normal inspection Eye exam: Present: normal appearance, PERRL, EOMI. Absent: scleral icterus, conjunctival injection, periorbital swelling ENT exam: Present: normal exam, mucous membranes moist Neck exam: Present: normal inspection. Absent: tenderness, meningismus, lymphadenopathy Respiratory exam: Present: normal lung sounds bilaterally. Absent: respiratory distress, wheezes, rales, rhonchi, stridor Cardiovascular Exam: Present: regular rate, normal rhythm, normal heart sounds. Absent: systolic murmur, diastolic murmur, rubs, gallop, clicks GI/Abdominal exam: Present: soft, normal bowel sounds. Absent: distended, tenderness, guarding, rebound, rigid Extremities exam: Present: normal inspection, full ROM, normal capillary refill. Absent: tenderness, pedal edema, joint swelling, calf tenderness Back exam: Present: normal inspection Neurological exam: Present: alert, oriented X3, CN II-XII intact Psychiatric exam: Present: normal affect, normal mood Skin exam: Present: warm, dry, intact, normal color. Absent: rash Course Vital Signs 07/04/17 14:47 Temperature 97.9 F Pulse Rate 72 Respiratory 18 Rate Blood Pressure 102/67 O2 Sat by Pulse 100 Oximetry Chest Pain MDM - MDM I did review the imaging and reports no acute findings. Patient does have persistent chest pain is unclear whether this is indeed cardiac in origin there is some atypical component with some mild xiphoid area tenderness. This is apparently different any other pain the patient was complaining of. She will be admitted for evaluation by cardiology. She did have a hypotensive episode due to higher dosing of Nitrol this will be reduced. Disposition Clinical Impression: Chest pain, Unstable angina, Xiphoidalgia Disposition: ADMITTED IP TO THIS HOSP Condition: Stable Referrals: Castillo Younger DO [Primary Care Provider] - 1-2 days
[2017-07-04] MEDS ORDERED: NITROGLYCERIN OINT 1 INCH/GM PACKET TOPICAL STA (15:13)
[2017-07-04] MEDS ORDERED: SODIUM CHLORIDE 0.9% 1,000 ML IV STA (15:13)
[2017-07-04 15:18] LABS: Basophils % (A) 1 %; CH 29.1; CHCM 33.6; Eosinophils # (A) 0.4 k/uL (0-0.7); Eosinophils % (A) 5 %; HCT 41.7 % (34.0-46.0); HDW 2.73; HGB 13.7 gm/dL (11.4-16.0); Luc # (Auto) 0.06; Luc % (Auto) 1; Lymphocytes # (A) 1.9 k/uL (1.0-4.8); Lymphocytes % (A) 27 %; MCH 28.6 pg (25.0-35.0); MCHC 32.9 g/dL (31.0-37.0); Mean Platelet Volume 7.6; Monocytes # (A) 0.5 k/uL (0-1.0); Monocytes % (A) 7 %; Neutrophils # (A) 4.1 k/uL (1.3-7.7); Neutrophils % (A) 60 %; RDW 14.6 % (11.5-15.5); WBC 6.9 k/uL (3.8-10.6); WBC (Perox) 7.62
[2017-07-04 15:28] LABS: ALT 41 U/L (9-52); AST 39 U/L (14-36); Alkaline Phosphatase 86 U/L (38-126); Anion Gap 5 mmol/L; Blood Urea Nitrogen 13 mg/dL (7-17); Calcium 9.8 mg/dL (8.4-10.2); Carbon Dioxide 30 mmol/L (22-30); Chloride 105 mmol/L (98-107); Glucose 75 mg/dL (74-99); Magnesium 1.8 mg/dL (1.6-2.3); Non-African American GFR(MDRD) >60 (>60 ml/min/1.73 sqM); Potassium 4.5 mmol/L (3.5-5.1); Sodium 140 mmol/L (137-145); Total Bilirubin 0.3 mg/dL (0.2-1.3); Total Protein 6.3 g/dL (6.3-8.2)
[2017-07-04 15:36] LABS: Partial Thromboplastin Time 25.2 sec (22.0-30.0); Prothrombin Time 10.4 sec (9.0-12.0)
[2017-07-04 15:53] LABS: Creatine Kinase 417 U/L (30-135)
[2017-07-04 16:06] LABS: Troponin I <0.012 ng/mL (0.000-0.034)
[2017-07-04 16:08] LABS: Creatine Kinase MB 4.5 ng/mL (0.0-2.4)
--- NOTE | 2017-07-04 16:30 | XR ---
EXAMINATION TYPE: XR chest 2V DATE OF EXAM: 07/04/2017 COMPARISON: 03/13/2017 INDICATION: Chest pain TECHNIQUE: Frontal and lateral views of the chest are obtained. FINDINGS: The heart size is normal. The pulmonary vasculature is normal. The lungs are clear. IMPRESSION: 1. No acute pulmonary process.
[2017-07-04] MEDS ORDERED: NITROGLYCERIN SL TABS 0.4 MG TAB SUBLINGUAL PRN (16:38)
[2017-07-04] MEDS ORDERED: HEPARIN SODIUM,PORCINE 5,000 UNIT/ML 1 ML VIAL IV ONE (16:38)
[2017-07-04] MEDS ORDERED: SODIUM CHLORIDE 0.9% 1,000 ML IV SCH (16:45)
[2017-07-04] MEDS ORDERED: HEPARIN SODIUM,PORCINE/D5W PMX 25,000 UNIT in DEXTROSE/WATER 1 500ML.BAG IV SCH (16:45)
[2017-07-04] MEDS: NITROGLYCERIN OINT 1 INCH/GM PACKET TOPICAL SCH (18:21)
[2017-07-04 18:38] VITALS: BMI 29.8
--- NOTE | 2017-07-04 19:06 | HP ---
HISTORY AND PHYSICAL DATE OF ADMISSION: 07/04/17 CHIEF COMPLAINT: Chest pain. HISTORY OF PRESENT ILLNESS: This 52-year-old woman with a past medical history of multiple medical problems including atrial fibrillation, history of cellulitis, history of back pain, history of DJD, anxiety, depression being followed by Dr. Younger in the outpatient setting , had a cardiac cath last year and otherwise currently the patient is complaining of severe chest which was felt in the anterior part of the chest and also upper part of the abdomen. The patient felt like an elephant sitting on her chest, 7 out of 10 and the pain woke her up from the sleep and without any radiation and the palpations and sweating and the patient came to [facility] and was admitted for further evaluation and treatment. The creatine kinase elevated 417 and troponins are negative and the EKG done on admission showed no acute abnormality except for sinus bradycardia 58 and a chest x-ray was also done which showed no acute process. Patient admitted. There is no history of fever, rigors. PAST MEDICAL HISTORY: 1. Previous cardiac catheterization. 2. History of atrial fibrillation. 3. History of MRSA. 4. History of claustrophobia. 5. Anxiety and depression. MEDICATIONS: Prior to admission include home medications are: 1. Effexor XR 75 mg p.o. t.i.d. 2. Multivitamins 1 p.o. daily. 3. Lopressor 25 mg b.i.d. 4. Percocet 10 mg t.i.d. p.r.n. 5. Xanax 1 mg b.i.d. p.r.n. ALLERGIES: SOMA, KEFLEX, CODEINE, TORADOL, COMPAZINE, BACTRIM AND IV DYE. FAMILY HISTORY: History of cancer, COPD, hypertension and pneumonia, hypothyroidism. SOCIAL HISTORY: History of smoking. Occasional alcohol intake. The patient is cutting down smoking according to her. REVIEW OF SYSTEMS: ENT: No diminished vision,no diminished hearing. Cardiovascular: As mentioned. Respiratory: As mentioned earlier. GI: No nausea and no vomiting. no dysuria or dysuria. Nervous system: No numbness or weakness. Allergy/Immunology: No asthma or hayfever. MUSCULOSKELETAL: As mentioned earlier. Hematology/Oncology: No history of anemia. Endocrine: No history of diabetes or hypothyroidism. Constitutional: As mentioned earlier. Rheumatology: Negative. Dermatology: Negative. PSYCHIATRY: As mentioned earlier. PHYSICAL EXAMINATION: Alert and oriented times three. Pulse is 72. Blood pressure 102/67, respiratory rate 18, temperature 97.7, pulse ox 100% on room air. HEENT: Conjunctivae normal. Neck: No jugular venous distention. Cardiovascular : S1, S2 muffled. Respiratory: Breath sounds diminished at the bases. No rhonchi. No crackles. ABDOMEN: Soft, nontender. No mass palpable. Legs no edema and no swelling. NERVOUS SYSTEM: Higher functions as mentioned earlier. Moves all four limbs. Lymphatics: No lymph nodes palpable in the neck or axilla. Skin no ulcer, rash or bleeding. LAB STUDIES: CBC within normal limits and CK as noted. ASSESSMENT: 1. Chest pain possible unstable angina. 2. Elevated creatine kinase with normal troponins. 3. History of atrial fibrillation. 4. History of urinary tract infection. 5. History of pancreatitis. 6. History of Methicillin-resistant Staphylococcus aureus. 7. History of anxiety, depression. 8. History of nicotine dependence. RECOMMENDATIONS AND DISCUSSION: In this 52-year-old woman who presented with multiple complex medical complex medical issues, we will monitor the patient closely, continue the current medications, continue symptomatic treatment. We will initiate the home medications, antiplatelet agents and consult Cardiology and heparin protocol. Unstable angina protocol. Prognosis is guarded. Rule out myocardial infarction. Discussed with the patient, understands and agrees. Further recommendations to follow. MMPETERL / YOVANNYN: [id number] / MTDD
[2017-07-04] MEDS: VENLAFAXINE HCL ER 75 MG CAP PO SCH (19:39)
[2017-07-04] MEDS: METOPROLOL TARTRATE 25 MG TAB PO SCH (19:39)
[2017-07-04] MEDS: oxyCODONE-APAP 10-325MG 1 EACH TAB PO PRN (19:39)
[2017-07-04] MEDS: ALPRAZolam 0.5 MG TAB PO SCH (21:12)
[2017-07-04 23:13] LABS: Creatine Kinase 303 U/L (30-135)
[2017-07-04 23:26] LABS: Troponin I <0.012 ng/mL (0.000-0.034)
[2017-07-04 23:31] LABS: Creatine Kinase MB 3.3 ng/mL (0.0-2.4)
[2017-07-05] MEDS: NITROGLYCERIN OINT 1 INCH/GM PACKET TOPICAL SCH ×2 (01:43→04:07)
[2017-07-05] MEDS: oxyCODONE-APAP 10-325MG 1 EACH TAB PO PRN ×2 (04:41→12:36)
[2017-07-05 06:02] LABS: Cholesterol 179 mg/dL (<200); HDL Cholesterol 54 mg/dL (40-60)
[2017-07-05 06:16] LABS: Creatine Kinase 262 U/L (30-135)
[2017-07-05 06:28] LABS: Troponin I <0.012 ng/mL (0.000-0.034)
[2017-07-05 06:30] LABS: Creatine Kinase MB 2.8 ng/mL (0.0-2.4)
[2017-07-05] MEDS ORDERED: METOPROLOL TARTRATE 25 MG TAB PO SCH (09:00)
[2017-07-05] MEDS ORDERED: ASPIRIN 325 MG TAB PO SCH (09:00)
[2017-07-05] MEDS: ALPRAZolam 0.5 MG TAB PO SCH (09:18)
[2017-07-05] MEDS ORDERED: DOBUTamine DRIP for NUC MED 500 MG in DEXTROSE/WATER 1 250ML.BAG IV ONE (09:49)
[2017-07-05] MEDS: IBUPROFEN 600 MG TAB PO SCH ×2 (10:40→16:19)
[2017-07-05] MEDS ORDERED: MULTIVITAMINS, THERA 1 EACH TAB PO SCH (12:00)
[2017-07-05] MEDS ORDERED: ATROPINE SULFATE 0.1 MG/ML 10ML SYRINGE ONE (12:07)
[2017-07-05] MEDS: VENLAFAXINE HCL ER 75 MG CAP PO SCH ×2 (12:32→16:19)
[2017-07-05] MEDS: METOPROLOL TARTRATE 25 MG TAB PO SCH (12:33)
[2017-07-05 12:34] VITALS: BP 111/59; PULSE 75; RESP 18; TEMP 97.5
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
--- NOTE | 2017-07-05 13:40 | ECHOS ---
STRESS ECHOCARDIOGRAM DATE OF SERVICE: 07/05/2017 MEDICATIONS:: BASELINE HEART RATE: 47 BASELINE BLOOD PRESSURE: 151/50 MAXIMUM HEART RATE: 143 MAXIMUM BLOOD PRESSURE: 103/60 85% MPHR: 145 100% MPHR: 170 METS: MAXIMUM STAGE REACHED: TOTAL EXERCISE TIME: INDICATIONS: Chest pain. CLINICAL INFORMATION: Patient was given dobutamine infusion according to the standard protocol. Peak heart rate of 143 was achieved. Maximum blood pressure of 103/60 mmHg was noted. Resting EKG shows normal sinus rhythm with normal NE interval and QRS duration and normal ST-T waves. During dobutamine infusion, J-point depression with upsloping ST segments were noted. The baseline echocardiographic images reveal normal left ventricular size with normal left ventricular systolic function. At the peak dose of dobutamine infusion, normal increase in the wall thickness and contractility was noted. FINAL IMPRESSION: This dobutamine stress echocardiographic study is negative for stress-induced ischemia. EKG portion of the stress test is not suggestive of ischemia. MMODL / IJN: [id number] /
--- NOTE | 2017-07-05 15:30 | P.DS ---
Providers Date of admission: 07/04/17 16:39 Attending physician: Joseph Durham Consults: 07/04/17 16:39 Consult Physician Urgent Consulting Provider: Brenton Murphy Consult Reason/Comments: Chest pain Do you want consulting provider notified?: Yes Primary care physician: Castillo Younger [place] [facility] Course: This 52-year-old woman with a past medical history multiple medical problems was admitted with chest pain. Myocardial infarction was ruled out. Cardiology saw the patient. Stress echo was negative. Patient be discharged in a stable condition with guarded prognosis after clearance from cardiology. On exam vitals are stable. Cardio S1 and S2 normal. Respiration clear to oscillation. Abdomen soft nontender. Final diagnosis 1. Chest pain possibly muscle skeletal with a negative stress echo. 2. Elevated creatinine kinase of the normal troponins. 3. History of ablation chronic. 4. History UTI. 5. History of pancreatitis. 6. History of MRSA. Patient Condition at Discharge: Stable Plan - Discharge Summary Discharge Rx Participant: Yes New Discharge Prescriptions: No Action oxyCODONE HCL/ACETAMINOPHEN [Percocet 10-325 mg] 1 tab PO TID PRN PRN Reason: Pain ALPRAZolam [Xanax] 1 mg PO BID PRN PRN Reason: Anxiety Venlafaxine HCl ER [Effexor Xr] 75 mg PO TID Multivitamins, Thera [Multivitamin (formulary)] 1 tab PO DAILY Metoprolol Tartrate [Lopressor] 25 mg PO BID Discharge Medication List ALPRAZolam [Xanax] 1 mg PO BID PRN 08/24/16 [History] oxyCODONE HCL/ACETAMINOPHEN [Percocet 10-325 mg] 1 tab PO TID PRN 08/24/16 [ History] Metoprolol Tartrate [Lopressor] 25 mg PO BID 07/04/17 [History] Multivitamins, Thera [Multivitamin (formulary)] 1 tab PO DAILY 07/04/17 [History ] Venlafaxine HCl ER [Effexor Xr] 75 mg PO TID 07/04/17 [History] Follow up Appointment(s)/Referral(s): Castillo Younger DO [Primary Care Provider] - 1-2 days
[2017-07-06] MEDS ORDERED: ASPIRIN 81 MG PO SCH (09:00)
== END 2017-07-05 16:15 | disposition home or self-care (01) ==
LOC: SUPCPDRO 14:45 → EC 14:45 → 3OBS 16:39
PROVIDERS: ADMIT Hospitalist; ATTEND Hospitalist
DX: R07.89 Other chest pain (principal); R79.89 Other specified abnormal findings of blood chemistry; Z87.440 Personal history of urinary (tract) infections; Z86.14 Personal history of Methicillin resistant Staphylococcus aureus infection; I48.2 Chronic atrial fibrillation; I48.0 Paroxysmal atrial fibrillation; E78.5 Hyperlipidemia, unspecified; M54.9 Dorsalgia, unspecified; F32.9 Major depressive disorder, single episode, unspecified; F41.9 Anxiety disorder, unspecified; F40.240 Claustrophobia; F17.200 Nicotine dependence, unspecified, uncomplicated; I95.9 Hypotension, unspecified; Z79.899 Other long term (current) drug therapy; Z88.8 Allergy status to other drugs, medicaments and biological substances; Z88.5 Allergy status to narcotic agent; Z88.1 Allergy status to other antibiotic agents; Z91.041 Radiographic dye allergy status; Z80.8 Family history of malignant neoplasm of other organs or systems; Z82.5 Family history of asthma and other chronic lower respiratory diseases; Z82.49 Family history of ischemic heart disease and other diseases of the circulatory system
CPT/HCPCS: 99285; 96365 ×2; 96376 ×2; 96361 ×2; 96366 ×2; 36415; 94760; 93005; 93017; 93350; 85379; 83880; 80061; 80053; 82550 ×2; 82553 ×2; 83735; 84484 ×2; 85025; 85610; 85730 ×2; 71020; G0378 ×2; J1250; J1644 ×2; J0461